=== PATIENT | male | born 1945 | race African-American/Black ===

== ENCOUNTER 2016-12-26 15:45 | Emergency (ER) | payer OTHER, MEDICAID ==
[~2016-12-26] VITALS: Ht 165.1 cm; Wt 63.6 kg
[~2016-12-26 15:45] MED LIST: ATOR20TA86 PO; PANT40TA PO; PHEN100C23 PO
[2016-12-26] MEDS ORDERED: PHEN50TA PO (16:03)
[2016-12-26 19:52] VITALS: BP 146/85
== END 2016-12-26 19:58 | disposition home or self-care (01) ==
LOC: EMS 15:47
DX: S22.32XA Fracture of one rib, left side, initial encounter for closed fracture (principal); S27.9XXA Injury of unspecified intrathoracic organ, initial encounter; W19.XXXA Unspecified fall, initial encounter; Y93.89 Activity, other specified; Y92.091 Bathroom in other non-institutional residence as the place of occurrence of the external cause; Y99.8 Other external cause status
CPT/HCPCS: 71100; 72100; 99284

== ENCOUNTER 2017-03-06 07:23 | Emergency (ER) | payer OTHER, MEDICAID ==
[~2017-03-06] VITALS: Ht 165.1 cm; Wt 59.0 kg
[2017-03-06] MEDS ORDERED: SENN-30 PO (07:43)
[2017-03-06] MEDS ORDERED: METO25 PO (07:45)
[2017-03-06] MEDS ORDERED: PHEN-460 PO (07:47)
[2017-03-06] MEDS ORDERED: PHENYTOIN SODIUM 1,000 MG in SODIUM CHLORIDE 0.9% 150 ML IV ONE (08:45)
[2017-03-06 11:15] VITALS: BP 118/76
[2017-03-06] MEDS ORDERED: ACETAMINOPHEN 325 MG TABLET PO ONE (11:15)
== END 2017-03-06 11:44 | disposition home or self-care (01) ==
LOC: EMS 07:25
DX: R56.9 Unspecified convulsions (principal); Z51.81 Encounter for therapeutic drug level monitoring
CPT/HCPCS: 36415; 80185; 96365; 99285; J1165; J7050

== ENCOUNTER 2017-10-09 03:41 | Emergency (ER) | payer OTHER, MEDICAID ==
[~2017-10-09] VITALS: Ht 165.1 cm; Wt 84.1 kg
[~2017-10-09 03:41] MED LIST changes: -ATOR20TA86 PO; +METO25 PO; -PANT40TA PO; +PHEN-460 PO; -PHEN100C23 PO; +SENN-175 PO
[2017-10-09] MEDS ORDERED: PANT40TA25 PO (03:53)
[2017-10-09] MEDS ORDERED: DSS100 PO (03:53)
[2017-10-09] MEDS ORDERED: LORA10TA7 PO (03:53)
[2017-10-09] MEDS ORDERED: ATOR20TA86 PO (03:53)
[2017-10-09] MEDS ORDERED: [UNRECOGNIZED DRUG - CODE] PO (03:53)
[2017-10-09] MEDS ORDERED: PHENYTOIN SODIUM 100 MG ER CAPSULE PO ONE (05:00)
[2017-10-09 05:37] VITALS: BP 134/87
== END 2017-10-09 05:42 | disposition home or self-care (01) ==
LOC: EMS 03:42
DX: G40.89 Other seizures (principal); I10 Essential (primary) hypertension
CPT/HCPCS: 93005; 99285